=== PATIENT | female | born 1995 | race Caucasian/White ===

== ENCOUNTER 2016-12-14 08:16 | Emergency (ER) | payer OTHER ==
[~2016-12-14] VITALS: Ht 160 cm; Wt 65.0 kg
[~2016-12-14 08:16] MED LIST: DOCU-144 PO; FAMO10TA84 PO; POLY17PO6 PO
[2016-12-14 08:18] VITALS: Ht 160 cm; Wt 65.0 kg
[2016-12-14] MEDS ORDERED: KETOROLAC 30 MG INJ IV STA (08:29)
[2016-12-14 09:09] LABS: BASOPHILS % 0.3 % (0.0-2.0); EOSINOPHILS # 0.1 10^3/ul (0.0-0.5); EOSINOPHILS % 1.5 % (0.0-7.0); HEMATOCRIT 40.7 % (37.0-47.0); HEMOGLOBIN 13.9 g/dl (12.0-16.0); LYMPHOCYTES # 2.6 10^3/ul (0.8-2.9); LYMPHOCYTES % 38.3 % (15.0-51.0); MEAN CORPUSCULAR HEMOGLOBIN 27.1 pg (29.0-33.0); MEAN CORPUSCULAR HGB CONC 34.2 g/dl (32.0-37.0); MEAN CORPUSCULAR VOLUME 79.3 fl (82.0-101.0); MEAN PLATELET VOLUME 9.7 fl (7.4-10.4); MONOCYTE # 0.5 10^3/ul (0.3-0.9); NEUTROPHILS % 52.3 % (39.0-77.0); PLATELET COUNT 324 10^3/UL (140-415); RED BLOOD COUNT 5.13 10^6/ul (4.20-5.40); RED CELL DISTRIBUTION WIDTH 12.5 % (11.5-14.5); WHITE BLOOD COUNT 6.8 10^3/ul (4.8-10.8)
[2016-12-14 09:28] LABS: CALCIUM 9.3 mg/dl (8.4-10.2); CREATININE 0.61 mg/dl (0.44-1.00); POTASSIUM 4.2 mmol/L (3.5-5.1)
--- NOTE | 2016-12-14 09:42 | RADRPT ---
PROCEDURE: US Pelvis CLINICAL INDICATION: Pelvic pain. TECHNIQUE: Sonographic evaluation of the pelvis was performed utilizing both transabdominal and tr ansvaginal technique. Curved array transabdominal transducer technique as well as a high frequency endovaginal probe was utilized. Images were reviewed on the high-resolution PACS workstation. COMPARISON: Pelvic ultrasound dated 11/20/2014 FINDINGS: The uterus is normal in size, echogenicity, and morphology measuring 7.3 x 3.8 x 4.2 cm in dimension . The uterus is anteverted in normal position. The endometrium is normal for a menstrual age fema le measuring 7.8 mm in diameter. There is a right ovarian cyst measuring 5.9 x 4.8 x 5.5 cm with internal reticular echoes. There ar e solid-appearing components with mildly convex margins. The left ovary measures 2.9 x 2.2 x 2.2 cm in dimension. Normal Doppler flow is demonstrated to both ovaries. There are no adnexal masses. There is no significant free fluid in the pelvis. IMPRESSION: 1. Complex right ovarian cyst, likely reflecting a hemorrhagic cyst. Internal solid appearing comp onents demonstrate somewhat convex margins, therefore follow-up imaging in 6-8 weeks is recommended to ensure stability or resolution. 2. Otherwise, unremarkable pelvic ultrasound. RPTAT: HH .Maryanne Ward MD, Date Time Electronically viewed and signed by .Maryanne Ward MD, on 12/14/2016 09:41 .G/
[2016-12-14 10:10] VITALS: BP 117/58; PULSE 59; RESP 20; TEMP 98.3
[2016-12-14] MEDS ORDERED: IBUP-1542 PO (10:25)
--- NOTE | 2016-12-14 10:29 | ERD ---
ER Documentation Chief Complaint Date/Time DATE: 12/14/16 TIME: 10:27 Chief Complaint sudden onset of abdominal pain with vaginal bleeding HPI 21-year-old female presents to the emergency department complaining of pelvic pain. Patient states that she is 2 weeks status post an operation for an ovarian cyst. She states that she initially got much better after the operation and had no significant postoperative pain. She states that this morning she awoke with a spontaneous vaginal bleeding and then began having pelvic pain. The pain was described as sudden and severe. She reported no nausea, vomiting, fevers, chills. She reported no urinary symptoms. ROS All systems reviewed and are negative except as per history of present illness. Medications Home Meds Active Scripts Ibuprofen* (Ibuprofen*) 600 Mg Tablet, 600 MG PO Q6 for PAIN, #20 TAB Prov:LATONYA ADAMS 12/14/16 Discontinued Scripts Famotidine* (Famotidine*) 10 Mg Tablet, 10 MG PO BID, #30 TAB Prov:BRENDA SEYMOUR PA-C 11/20/14 Polyethylene Glycol* (Miralax*) 17 Gm Powd.pack, 17 GM PO DAILY, #7 Prov:BRENDA SEYMOUR PA-C 11/20/14 Docusate Sodium* (Colace*) 100 Mg Capsule, 100 MG PO TID, #30 Prov:BRENDA SEYMOUR PA-C 11/20/14 Allergies Allergies: Coded Allergies: No Known Allergy (Unverified , 12/14/16) PMhx/Soc History of Surgery: Yes (Fallopian tube cyst removed.) Anesthesia Reaction: No Hx Neurological Disorder: No Hx Respiratory Disorders: No Hx Cardiac Disorders: No Hx Psychiatric Problems: No Hx Miscellaneous Medical Probl: No Hx Alcohol Use: No Hx Substance Use: No Hx Tobacco Use: No Smoking Status: Never smoker FmHx Noncontributory for chief complaint Physical Exam Vitals Vital Signs Date Time Temp Pulse Resp B/P Pulse Ox O2 Delivery O2 Flow Rate FiO2 12/14/16 10:10 98.3 59 20 117/58 99 Room Air 12/14/16 08:18 98.4 84 24 153/103 99 Physical Exam GENERAL: The patient is well developed and appropriate for usual state of health in no apparent distress HEENT: Pupils equal, round, and reactive to light. EOMI. There is no scleral icterus. NECK: C-spine is soft and supple, there is no meningismus. There is no cervical lymphadenopathy. LUNGS: Clear to auscultation bilaterally. There are no rales, wheezes or rhonchi. HEART: Regular rate and rhythm, no murmurs, clicks, rubs or gallops. ABDOMEN: Soft, non-tender, non-distended. There are bowel sounds in all four quadrants. No rebound or guarding. Well-healed surgical scars are noted EXTREMITIES: There is no peripheral cyanosis or edema. No focal swelling or erythema. NEURO: The patient moves all four extremities with 5/5 strength. Cranial nerves II - XII are intact. Normal gait. Alert and oriented SKIN: There is no apparent rash or petechiae. HEME/LYMPHATIC: There is no evidence of excessive bruising or lymphedema. PSYCHIATRIC: The patient does not appear anxious or depressed. Result Diagram: 12/14/16 0840 12/14/16 0840 Results 24 hrs Laboratory Tests Test 12/14/16 08:40 White Blood Count 6.810^3/ul Red Blood Count 5.1310^6/ul Hemoglobin 13.9g/dl Hematocrit 40.7% Mean Corpuscular Volume 79.3fl Mean Corpuscular Hemoglobin 27.1pg Mean Corpuscular Hemoglobin Concent 34.2g/dl Red Cell Distribution Width 12.5% Platelet Count 97338^3/UL Mean Platelet Volume 9.7fl Neutrophils % 52.3% Lymphocytes % 38.3% Monocytes % 7.0% Eosinophils % 1.5% Basophils % 0.3% Nucleated Red Blood Cells % 0.0/100WBC Neutrophils # (Manual) 3.610^3/ul Lymphocytes # 2.610^3/ul Monocytes # 0.510^3/ul Eosinophils # 0.110^3/ul Basophils # 0.010^3/ul Nucleated Red Blood Cells # 0.010^3/ul Sodium Level 138mmol/L Potassium Level 4.2mmol/L Chloride Level 106mmol/L Carbon Dioxide Level 21mmol/L Anion Gap 15 Blood Urea Nitrogen 11mg/dl Creatinine 0.61mg/dl Glucose Level 92mg/dl Calcium Level 9.3mg/dl Serum HCG, Qualitative NEGATIVE Current Medications Medications (Trade) Dose Ordered Sig/Marcello Route PRN Reason Start Time Stop Time Status Last Admin Dose Admin Ketorolac Tromethamine (Toradol) 30 mg ONCE STAT IV 12/14/16 08:29 12/14/16 08:30 DC 12/14/16 08:53 Procedures/MDM Patient was taken to a room, seen and evaluated. Comfort measures were initiated. Diagnostic tests were ordered and reviewed. RADIOLOGY: [reviewed with the radiologist] REEVALUATION: Patient's pain was completely controlled and she remained with a benign abdominal examination. MEDICAL DECISION MAKIN-year-old female with a history of recent ovarian cyst surgery presents to the emergency department with pelvic pain of uncertain etiology. Differential diagnosis entertained was broad and potential high acuity but focused on recurrent ovarian cyst or torsion. At this time, her ultrasound does demonstrate recurrent cyst disease, but no evidence of infection with a normal white count, no fever and no evidence of peritonitis. Furthermore, ultrasound shows no evidence of torsion. Given her nontoxic appearance, I have discussed her results with her and she feels comfortable as do I following up with her primary reserve operator. Departure Diagnosis: Primary Impression: Pelvic pain Condition: Stable Patient Instructions: Ovarian Cyst Additional Instructions: Please see your doctor for evaluation of the ovarian cyst. Take a copy of your results with you. Return for any increased pain, any other problems or concerns LATONYA ADAMS Dec 14, 2016 10:29
== END 2016-12-14 11:03 | disposition home or self-care (01) ==
LOC: E/R 08:16
DX: R10.2 Pelvic and perineal pain (principal)
CPT/HCPCS: 36415; 76830; 76856; 80048; 84703; 85025; 96374; J1885; Z7502

== ENCOUNTER 2017-06-02 08:44 | Emergency (ER) | END 2017-06-02 11:13 | disposition home or self-care (01) ==

== ENCOUNTER 2017-10-08 08:59 | Emergency (ER) | END 2017-10-08 09:48 | disposition home or self-care (01) ==

== ENCOUNTER 2018-09-02 10:18 | Emergency (ER) | payer OTHER ==
[~2018-09-02] VITALS: Ht 157.5 cm; Wt 87.4 kg
[~2018-09-02 10:18] MED LIST changes: -DOCU-144 PO; -FAMO10TA84 PO; +IBUP-1542 PO; -POLY17PO6 PO
[2018-09-02 10:20] VITALS: BP 147/85; PULSE 92; RESP 16; Ht 157.5 cm; Wt 87.4 kg
[2018-09-02] MEDS ORDERED: PRED20TA PO (11:08)
[2018-09-02] MEDS ORDERED: BEN25 PO (11:08)
--- NOTE | 2018-09-02 11:13 | ERD ---
ER Documentation Chief Complaint Chief Complaint BEE STING ON RT HAND X 10 DAYS C/O NUMBNESS HPI Patient is a 23-year female presents ER for concerns of bee sting which occurred 10 days ago. Patient states she did pull out the stinger of her third right finger.. Patient presents the ER because she has some swelling in her hand still. Patient denies any fevers or chills. Patient states occasionally she does feel some numbness in the affected digit. Is right-hand dominant. ROS All systems reviewed and are negative except as per history of present illness. Medications Home Meds Active Scripts Prednisone* (Prednisone*) 20 Mg Tab, 40 MG PO DAILY for 4 Days, TAB Prov:SHERITA PLASCENCIA PA-C 09/02/18 Diphenhydramine Hcl* (Benadryl*) 25 Mg Cap, 25 MG PO Q6, #30 CAP Prov:SHERITA PLASCENCIA PA-C 09/02/18 Ibuprofen* (Motrin*) 600 Mg Tab, 600 MG PO Q6, #30 TAB Prov:SHERITA PLASCENCIA PA-C 10/08/17 Ibuprofen* (Motrin*) 600 Mg Tab, 600 MG PO Q6, #30 TAB Prov:ELLEN PARRY PA-C 06/02/17 Ibuprofen* (Ibuprofen*) 600 Mg Tablet, 600 MG PO Q6 for PAIN, #20 TAB Prov:LATONYA ADAMS 12/14/16 Allergies Allergies: Coded Allergies: No Known Allergy (Unverified , 10/08/17) PMhx/Soc History of Surgery: Yes (pattie. ovarian cyst removed.) Anesthesia Reaction: No Hx Neurological Disorder: No Hx Respiratory Disorders: No Hx Cardiac Disorders: No Hx Psychiatric Problems: No Hx Miscellaneous Medical Probl: No Hx Alcohol Use: Yes Hx Substance Use: No Hx Tobacco Use: No Smoking Status: Never smoker FmHx Family History: No diabetes Physical Exam Vitals Vital Signs Date Temp Pulse Resp B/P (MAP) Pulse Ox O2 O2 Flow FiO2 Time Delivery Rate 09/02/18 97.9 92 16 147/85 99 10:20 (105) Physical Exam GENERAL: Well-developed, well-nourished female. Appears in no acute distress. HEAD: Normocephalic, atraumatic. EYES: Pupils are equally reactive bilaterally. EOMs grossly intact. No conjunctival erythema. ENT: Moist mucous membranes. No uvula deviation. No kissing tonsils. NECK: Supple. No meningismus. Normal range of motion of the neck. LUNG: Clear to auscultation bilaterally. No rhonchi, wheezing, rales or coarse breath sounds. HEART: Regular rate and rhythm. No murmurs, rubs or gallops. EXTREMITIES: Equal pulses bilaterally. No peripheral clubbing, cyanosis or edema. No unilateral leg swelling. NEUROLOGIC: Alert and oriented. Moving all four extremities without any difficulty. Normal speech. Steady gait. SKIN: Small puncture wound noted to the proximal aspect of the patient's right 3rd digit volar surface. Patient able to bend at MCP, PIP and DIP joint without any difficulty. Patient able to make a fist without any difficulty. No fusiform swelling. Fingers not in a flexed position. No warmth. No erythema, no streaking. Procedures/MDM MEDICAL DECISION MAKING: This is a 23-year-old female presents the ER for concerns of a bee sting which occurred 10 days ago. Vital signs were reviewed. Patient was afebrile. Patient is not diabetic. Small puncture wound was noted on the patient's skin. She states she did pull out the stinger. Patient had no signs of surrounding redness, streaking or warmth. Low suspicion for deep space infection, abscess or cellulitis. Patient was able to bend the digit without any difficulty. Finger was not in a flexed position. Low suspicion for flexor tenosynovitis. Patient was advised to take prednisone and Benadryl for his symptoms. Patient likely has a localized allergic reaction secondary to bee sting. Low suspicion for anaphylaxis. She was nontoxic, [id number] prior to discharge. PRESCRIPTIONS: Prednisone Benadryl DISCHARGE: At this time, patient is stable for discharge and outpatient management. I have advised the patient to avoid any new products, creams or possible allergens. I have advised the patient to avoid scratching the lesions. I have instructed the patient to follow-up with his/her primary care physician in 1-2 days. If symptoms persist, patient may need to see a manager pricing for further examinations and testing. I have instructed the patient to promptly return to the ER at any time for any new or worsening symptoms including increased pain, fever, redness, swelling, warmth, difficulty breathing or vomiting. The patient and/or family expressed understanding of and agreement with this plan. All questions were answered. Home care instructions were provided. Disclaimer: Inadvertent spelling and grammatical errors are likely due to EHR/dictation software use and do not reflect on the overall quality of patient care. Also, please note that the electronic time recorded on this note does not necessarily reflect the actual time of the patient encounter. Departure Diagnosis: Primary Impression: Bee sting Encounter type: initial encounter Injury intent: undetermined intent Qualified Codes: T63.444A - Toxic effect of venom of bees, undetermined, initial encounter Condition: Fair Patient Instructions: Insect Bites and Stings Referrals: TAMARA MATTHEWS MD (PCP) Additional Instructions: Call your primary care doctor TOMORROW for an appointment during the next 1-2 days.See the doctor sooner or return here if your condition worsens before your appointment time. SHERITA PLASCENCIA PA-C September 02, 2018 11:13
== END 2018-09-02 11:16 | disposition home or self-care (01) ==
LOC: FTE 10:18
DX: T63.444A Toxic effect of venom of bees, undetermined, initial encounter (principal)
CPT/HCPCS: 99283

== ENCOUNTER 2018-11-12 04:47 | Emergency (ER) | payer OTHER ==
[~2018-11-12] VITALS: Ht 160 cm; Wt 85.2 kg
[~2018-11-12 04:47] MED LIST changes: +BEN25 PO; +CIPR500T4 PO; +HYDR-4011 PO; +NAPR-985 PO; +PRED20TA PO
[2018-11-12 04:49] VITALS: Ht 160 cm; Wt 85.2 kg
[2018-11-12] MEDS ORDERED: morphine 2 MG INJ IV STA (04:57)
[2018-11-12] MEDS ORDERED: ONDANSETRON 4 MG INJ IV STA (04:57)
[2018-11-12] MEDS ORDERED: KETOROLAC 30 MG INJ IV STA (04:57)
[2018-11-12] MEDS ORDERED: SOD CHLORIDE 0.9% 1,000 ML IV STA (04:57)
--- NOTE | 2018-11-12 05:02 | ERD ---
ER Documentation Chief Complaint Chief Complaint PELVIC PAIN WITH VAG BLEEDIN X1DAY HPI 23-year-old female presents with complaint of bilateral lower abdominal pain since yesterday. In addition she also states is been passing "chunks of blood "the past day. Patient denies any dysuria, hematuria, nausea, vomiting, diarrhea, fevers, chills, flank pain, bloody stools, chance of . ROS All systems reviewed and are negative except as per history of present illness. Medications Home Meds Active Scripts Naproxen* (Naprosyn*) 500 Mg Tablet, 500 MG PO BID PRN for PAIN AND/OR INFLAMMATION, #30 TAB Prov:BRENDA SEYMOUR PA-C 11/12/18 Ciprofloxacin Hcl* (Ciprofloxacin Hcl*) 500 Mg Tablet, 500 MG PO BID for 7 Days, TAB Prov:BRENDA SEYMOUR PA-C 11/12/18 Hydrocodone/Acetaminophen ([place] 5-325 Tablet) 1 Each Tablet, 1 TAB PO Q6H PRN for PAIN, #7 TAB Prov:BRENDA SEYMOUR PA-C 11/12/18 Prednisone* (Prednisone*) 20 Mg Tab, 40 MG PO DAILY for 4 Days, TAB Prov:SHERITA PLASCENCIA PA-C 09/02/18 Diphenhydramine Hcl* (Benadryl*) 25 Mg Cap, 25 MG PO Q6, #30 CAP Prov:SHERITA PLASCENCIA PA-C 09/02/18 Ibuprofen* (Motrin*) 600 Mg Tab, 600 MG PO Q6, #30 TAB Prov:SHERITA PLASCENCIA PA-C 10/08/17 Ibuprofen* (Motrin*) 600 Mg Tab, 600 MG PO Q6, #30 TAB Prov:ELLEN PARRY PA-C 06/02/17 Ibuprofen* (Ibuprofen*) 600 Mg Tablet, 600 MG PO Q6 for PAIN, #20 TAB Prov:LATONYA ADAMS 12/14/16 Allergies Allergies: Coded Allergies: No Known Allergy (Unverified , 10/08/17) PMhx/Soc History of Surgery: Yes (pattie. ovarian cyst removed.) Anesthesia Reaction: No Hx Neurological Disorder: No Hx Respiratory Disorders: No Hx Cardiac Disorders: No Hx Psychiatric Problems: No Hx Miscellaneous Medical Probl: No Hx Alcohol Use: Yes Hx Substance Use: No Hx Tobacco Use: No FmHx Family History: No diabetes, No coronary disease, No other Physical Exam Vitals Vital Signs Date Temp Pulse Resp B/P (MAP) Pulse Ox O2 O2 Flow FiO2 Time Delivery Rate 11/12/18 56 16 111/72 99 Room Air 07:44 (85) 11/12/18 97.8 68 19 124/57 98 04:49 (79) Physical Exam Const: No acute distress Head: Atraumatic Eyes: Normal Conjunctiva ENT: Normal External Ears, Nose and Mouth. Neck: Full range of motion. No meningismus. Resp: Clear to auscultation bilaterally Cardio: Regular rate and rhythm, no murmurs Abd: Tenderness palpation left lower quadrant. Negative McBurney's. Skin: No petechiae or rashes Back: No midline or flank tenderness Ext: No cyanosis, or edema Neur: Awake and alert Psych: Normal Mood and Affect Result Diagram: 11/12/18 0508 11/12/18 0508 Results 24 hrs Laboratory Tests Test 11/12/18 05:08 11/12/18 05:24 White Blood Count 6.2 10^3/ul Red Blood Count 5.19 10^6/ul Hemoglobin 13.6 g/dl Hematocrit 43.1 % Mean Corpuscular Volume 83.0 fl Mean Corpuscular Hemoglobin 26.2 pg Mean Corpuscular Hemoglobin Concent 31.6 g/dl Red Cell Distribution Width 12.8 % Platelet Count 328 10^3/UL Mean Platelet Volume 9.6 fl Immature Granulocytes % 0.300 % Neutrophils % 57.6 % Lymphocytes % 33.5 % Monocytes % 6.8 % Eosinophils % 1.5 % Basophils % 0.3 % Nucleated Red Blood Cells % 0.0 /100WBC Immature Granulocytes # 0.020 10^3/ul Neutrophils # 3.6 10^3/ul Lymphocytes # 2.1 10^3/ul Monocytes # 0.4 10^3/ul Eosinophils # 0.1 10^3/ul Basophils # 0.0 10^3/ul Nucleated Red Blood Cells # 0.0 10^3/ul Urine Color RED Urine Clarity CLOUDY Urine pH 6.0 Urine Specific [place] 1.027 Urine Ketones NEGATIVE mg/dL Urine Nitrite NEGATIVE mg/dL Urine Bilirubin NEGATIVE mg/dL Urine Urobilinogen NEGATIVE mg/dL Urine Leukocyte Esterase 1+ Marilynn/ul Urine Microscopic RBC > 182 /HPF Urine Microscopic WBC 38 /HPF Urine Squamous Epithelial Cells MODERATE /HPF Urine Bacteria FEW /HPF Urine Hemoglobin 3+ mg/dL Urine Glucose NEGATIVE mg/dL Urine Total Protein 2+ mg/dl Sodium Level 143 mmol/L Potassium Level 4.5 mmol/L Chloride Level 108 mmol/L Carbon Dioxide Level 25 mmol/L Anion Gap 10 Blood Urea Nitrogen 13 mg/dl Creatinine 0.58 mg/dl Est Glomerular Filtrat Rate mL/min > 60 mL/min Glucose Level 96 mg/dl Calcium Level 9.5 mg/dl Total Bilirubin 0.5 mg/dl Direct Bilirubin 0.00 mg/dl Indirect Bilirubin 0.5 mg/dl Aspartate Amino Transf (AST/SGOT) 43 IU/L Alanine Aminotransferase (ALT/SGPT) 117 IU/L Alkaline Phosphatase 60 IU/L Total Protein 7.6 g/dl Albumin 4.6 g/dl Globulin 3.00 g/dl Albumin/Globulin Ratio 1.53 Lipase 79 U/L POC Beta HCG, Qualitative NEGATIVE Current Medications Medications Dose Sig/Marcello Start Time Status Last (Trade) Ordered Route PRN Stop Time Admin Dose Reason Admin Sodium 1,000 ml @ Q1H STAT 11/12/18 DC 11/12/18 Chloride 1,000 mls/hr IV 04:57 11/12/18 05:24 05:56 Morphine 2 mg ONCE STAT 11/12/18 DC 11/12/18 Sulfate IV 04:57 11/12/18 05:26 (morphine) 05:00 Ondansetron 2 mg ONCE STAT 11/12/18 DC 11/12/18 HCl (Zofran IV 04:57 11/12/18 05:26 Inj) 05:00 Ketorolac 30 mg ONCE STAT 11/12/18 DC 11/12/18 Tromethamine IV 04:57 11/12/18 06:14 (Toradol) 05:00 Sodium 100 ml @ ud STK-MED 11/12/18 DC 11/12/18 Chloride ONCE .ROUTE 05:55 11/12/18 06:16 05:56 Iodixanol 100 ml STK-MED 11/12/18 DC 11/12/18 (Visipaque ONCE .ROUTE 05:55 11/12/18 06:16 Locm) 05:56 Procedures/MDM MDM: CT abdomen and pelvis and ultrasound were ordered. Pelvic ultrasound was ordered. Basic labs ordered. Patient was given IV fluids as well as pain medication in the ER. Patient signed out to MARYSOL Tinsley pending results of labs and imaging. DIAGNOSTIC IMAGING REPORT Patient: EMIR FRIEND : 1995 Age: 23 Sex: F [id number] DOS: 11/12/18 0457 Ordering MD: MARTIN SPARKS Location: [facility] Room/Bed: PROCEDURE: CT Abdomen and Pelvis with contrast. CLINICAL INDICATION: Abdominal pain TECHNIQUE: CT scan of the abdomen and pelvis with contrast was performed on a multi-detector high-resolution CT scanner. The patient was scanned following intravenous administration of 100 ml Visipaque 320 nonionic contrast. Coronal and sagittal reformatted images obtained from the axial source images. Images were reviewed on a high-resolution PACS workstation. Exam CTDI 14.74 mGy Exam DLP 926.03 mGy-cm DICOM images are available. One or more of the following dose reduction techniques were utilized: 1.) Automated exposure control 2.) Adjustment of the mA +/- kV according to patient's size 3.) Use of iterative reconstruction technique. COMPARISON: None. FINDINGS: CT abdomen: LOWER THORAX: Lung bases are clear. LIVER AND GALLBLADDER: Normal. SPLEEN: Normal. PANCREAS: Normal. ADRENAL GLANDS: Normal. KIDNEYS: The kidneys enhance symmetrically. No hydronephrosis or abnormal perinephric fluid. VASCULATURE: Negative for aortic aneurysm or dissection. LYMPH NODES: No significant retroperitoneal or mesenteric lymphadenopathy. BOWEL AND MESENTERY: Stomach and small bowel are unremarkable. A normal appendix is identified. The large bowel is unremarkable. CT pelvis: The urinary bladder is decompressed and otherwise unremarkable. There is a 4.5 x 4.1 x 3.5 cm cystic lesion within the right adnexa and an adjacent tubular structure measuring 1.2 cm diameter is identified.. A tubular structure within the left adnexa measuring up to 2.6 cm diameter is favored to represent a dilated fallopian tube. The adjacent uterus is unremarkable. There is no free fluid in the pelvis. Bones: Regional bones and superficial soft tissues are grossly unremarkable for age. IMPRESSION: 1. Right ovarian 4.5 cm cyst and bilateral adnexal tubular structures favored to represent hydrosalpinx. No associated pelvic free fluid or evidence of acute inflammatory process. Right ovarian cyst corresponds with the lesion identified on contemporaneous ultrasound. 2. No additional acute findings. 3. Normal appendix. DIAGNOSTIC IMAGING REPORT Patient: EMIR FRIEND : 1995 Age: 23 Sex: F MR #: [id number] DOS: 11/12/18 0457 Ordering MD: MARTIN SPARKS Location: [facility] Room/Bed: PROCEDURE: US Pelvis. CLINICAL INDICATION: pelvic pain TECHNIQUE: Multiple sonographic images of the pelvis were obtained utilizing transabdominal and endovaginal technique. The images were reviewed on a PACS workstation. COMPARISON: None. FINDINGS: The uterus is normal in size with a normal appearance of the myometrium. The uterus measures 7.8 x 3.7 x 4.0 cm. The endometrial stripe is homogeneous in appearance and has the thickness of 4 mm. Normal Doppler flow is identified in both ovaries. The right ovary measures 6.4 x 4.7 x 5.0 cm. There is a large 5.8 x 4.1 cm irregular appearing cyst in the right ovary. The left ovary measures 3.6 x 2.6 x 3.0 cm. No free fluid is present within the pelvis. RPTAT: AA IMPRESSION: Enlarged right ovary with a 5.8 cm cyst. Follow-up is 6 weeks is recommended. MDM: 23 yr old female complaining of pelvic pain. Patient has findings of ovarian cyst without torsion. Pain is likely associated with cyst. I have low suspicion for acute abdominal emergency. I do not feel further blood work or imaging is indicated. On reevaluation patient's pain is improved. I do not feel patient requires admission at this time. Patient also has findings of urinary tract infection will be discharged with antibiotics. Patient is told symptoms change or worsen to return immediately to the ER. Patient is recomm ended to follow-up with primary care and [employer]. Patient is discharged with supportive medications. I have low suspicion for other acute abdominal emergency. All questions answered at discharge Departure Diagnosis: Primary Impression: Ovarian cyst Additional Impression: UTI (urinary tract infection) Condition: Stable MARTIN SPARKS Nov 12, 2018 05:02 BRENDA SEYMOUR PA-C Nov 15, 2018 09:45
[2018-11-12] MEDS ORDERED: SOD CHLORIDE 0.9% 100 ML ONE (05:55)
[2018-11-12] MEDS ORDERED: IODIXANOL LOCM 100 ML BTL ONE (05:55)
[2018-11-12 07:44] VITALS: BP 111/72; PULSE 56; RESP 16
== END 2018-11-12 07:46 | disposition home or self-care (01) ==
LOC: FTE 04:47
DX: N83.201 Unspecified ovarian cyst, right side (principal); N39.0 Urinary tract infection, site not specified
CPT/HCPCS: 74177; 76830; 76856; 80053; 81001; 81025; 83690; 85025; J1885; J2270; J2405; J7030; Q9967; Z7610; 36415; 96374; 96375